=== PATIENT | female | born 1975 | race American Indian/Alaskan Native ===

== ENCOUNTER 2016-06-21 00:41 | Emergency (ER) | payer BC ==
[2016-06-21] MEDS ORDERED: TYLENOL ONE (03:15)
[2016-06-21] MEDS ORDERED: TYLENOL PO ONE (03:19)
--- NOTE | 2016-06-21 04:37 | Emergency Department Report ---
Addendum entered and electronically signed by GIANCARLO NGO PA 06/21/16 06:22 : Lab work: Patient H&H is 8.8 and 2 and 29.7 she has from chronic disease. White count was within normal limits. Patient said that she's been followed by her primary care physician for iron deficiency anemia. Original Note: HPI - General Chief Complaint: Upper Respiratory Infection Time Seen by Provider: 06/21/16 04:21 - HPI HPI: Patient here reports that she's been having fever, cough and chills sore throat and body ache that's been getting worst over the last day. She says she started off with a stuffy nose a week ago and she thinks it turned into pneumonia. Patient says she's been taking [id number]-[id number] medication it does not feel any better. Denies any chest pain or shortness of breath. She says she is coughing up some mucus it's yellowish. Her temperature is 102.7 and she was given Tylenol in triage. She reports pain 5 out of 10 and generalized into her throat. Denies any drooling or difficulty swallowing. 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 ED Past Medical Hx - Past Medical History Previous Medical History?: Yes Hx Diabetes: Yes Additional medical history: Anemia - Surgical History Past Surgical History?: No - Family History Family history: diabetes, hypertension - Social History Smoking Status: Never Smoker Substance Use Type: None - Medications Home Medications: Home Medications Medication Instructions Recorded Confirmed Last Taken Type ALBUTEROL Inhaler [ProAir HFA 2 puff IH QID PRN #1 inhalation 06/21/16 Unknown Rx Inhaler] Amoxicillin/K Clav Tab [Augmentin 1 tab PO Q12HR #20 tab 06/21/16 Unknown Rx 875 mg] Ibuprofen [Motrin] 600 mg PO Q8H PRN #15 tablet 06/21/16 Unknown Rx guaiFENesin/CODEINE [Robitussin AC] 10 ml PO QHS PRN #70 ml 06/21/16 Unknown Rx predniSONE [Deltasone] 50 mg PO QDAY #5 tab 06/21/16 Unknown Rx ED Review of Systems ROS: Stated complaint: FEVER/COUGH Other details as noted in HPI Comment: All other systems reviewed and negative Constitutional: chills, fever Eyes: denies: eye discharge ENT: throat pain, congestion. denies: ear pain Respiratory: cough. denies: orthopnea, shortness of breath, SOB with exertion, SOB at rest, stridor, wheezing Cardiovascular: denies: chest pain, palpitations, edema, syncope Gastrointestinal: denies: abdominal pain, nausea, vomiting, diarrhea Genitourinary: denies: urgency, dysuria, frequency, hematuria, discharge Musculoskeletal: arthralgia. denies: back pain Skin: denies: rash Neurological: denies: headache, weakness, numbness, paresthesias, confusion, abnormal gait, vertigo Physical Exam - Physical Exam Vital Signs: Vital Signs 06/21/16 06/21/16 06/21/16 03:12 03:20 04:34 Temperature 102.7 F H 101.9 F H Pulse Rate 110 H Respiratory 20 Rate Blood Pressure 149/87 O2 Sat by Pulse 100 Oximetry Vital Signs 06/21/16 06/21/16 06/21/16 03:12 03:20 04:34 Temperature 102.7 F H 101.9 F H Pulse Rate 110 H Respiratory 20 Rate Blood Pressure 149/87 Blood Pressure [Left] O2 Sat by Pulse 100 Oximetry 06/21/16 05:52 Temperature 99.4 F Pulse Rate 96 H Respiratory 18 Rate Blood Pressure Blood Pressure 136/84 [Left] O2 Sat by Pulse 98 Oximetry General: THis is a 40-year-old female well-nourished well-developed in no acute distress. Physical Exam: Head: Normocephalic atraumatic Mouth: Moist, no pharyngeal exudate or erythema. Uvula is midline and oral airway is patent. No gingival enlargement or dental tenderness. No facial swelling. No peritonsillar abscesses. Neck: Supple, no C-spine tenderness, no tracheal deviation. Nontender to palpate. no adenopathy Ears: Bilateral TMs congested without erythema .bilateral EAC without any redness swelling or drainage Eyes: Bilateral pupils equal and reactive to light, bilateral EOM intact. Bilateral sclera and conjunctiva without injection. Normal accommodation Nose: Mucosa moist, positive congestion no erythema. Positive clear drainage. maxillary and frontal sinus non-tender to palpate. Lungs: Scattered wheezing to bilateral lung ugarte .Normal work of breathing. Abdomen: Soft, nontender to palpate in all quadrants. No guarding or rebound tenderness. Normal bowel sounds. No CVA tenderness extremity; No CCE. +2 pulses. No neurovascular compromise Cardiovascular: S1-S2, tachycardic at 110 .regular rhythm. No murmurs. Skin: clean Dry and intact no rash no lesions Psych: Normal mood and behavior ED Course Vital Signs 06/21/16 06/21/16 06/21/16 03:12 03:20 04:34 Temperature 102.7 F H 101.9 F H Pulse Rate 110 H Respiratory 20 Rate Blood Pressure 149/87 O2 Sat by Pulse 100 Oximetry Vital Signs 06/21/16 06/21/16 06/21/16 03:12 03:20 04:34 Temperature 102.7 F H 101.9 F H Pulse Rate 110 H Respiratory 20 Rate Blood Pressure 149/87 Blood Pressure [Left] O2 Sat by Pulse 100 Oximetry 06/21/16 05:52 Temperature 99.4 F Pulse Rate 96 H Respiratory 18 Rate Blood Pressure Blood Pressure 136/84 [Left] O2 Sat by Pulse 98 Oximetry - Reevaluation(s) Reevaluation #1: 06/21/16 05:55 Patient given Motrin 800 mg by mouth for sore throat and body ache. Also for fever. Her temperature is now below 100. Reevaluation #2: 06/21/16 06:07 Given Rocephin 1 g IM and emergency room for bronchitis. He was also given DuoNeb times one nebulizer and Deltasone 60 mg by mouth. Upon reevaluation, chest sounds clear. ED Medical Decision Making - Radiology Data Radiology results: report reviewed Chest x-ray revealed no acute cardiopulmonary findings. - Medical Decision Making ED course: An Tylenol 650 mg by mouth and triage area for increase temp. Temp remained elevated therefore he was given Motrin 800 mg by mouth which brought temperature below 100, Other vital signs are now stable. Patient received Rocephin 1 g IM in emergency room, Deltasone 60 mg by mouth and DuoNeb 1 nebulizer treatment for management of acute bronchitis. Sore throat and body ache relieved after Motrin. I discussed the patient that she has acute bronchitis and will need to follow-up with her primary care physician within 2- 3 days. Patient discharged home with prescription for Augmentin, prednisone, Guaifenessin with codeine,motrin and albuterol inhaler. He voiced understanding of need to follow-up and to take Motrin every 8 hours when necessary to manage fever and body aches. Critical care attestation.: If time is entered above; I have spent that time in minutes in the direct care of this critically ill patient, excluding procedure time. ED Disposition Clinical Impression: Fever in adult, Cough Acute bronchitis Qualifiers: Bronchitis organism: unspecified organism Qualified Code(s): J20.9 - Acute bronchitis, unspecified Pharyngitis Qualifiers: Pharyngitis/tonsillitis etiology: unspecified etiology Qualified Code(s): J02.9 - Acute pharyngitis, unspecified Disposition: DISCHARGED TO HOME OR SELFCARE Is pt being admited?: No Does the pt Need Aspirin: No Condition: Stable Instructions: Acute Bronchitis (ED), Fever in Adults (ED), Acute Cough (ED) Additional Instructions: increase her fluid intake You can take vitamin C or multivitamin to posterior immune system Take medication as prescribed. Please rest for 72 hours Follow-up with a primary care physician in 2-3 days. Cough medicine can cause drowsiness so please do not drive or operate any heavy machinery while taking cough medicine. Prescriptions: guaiFENesin/CODEINE [Robitussin AC] 10 ml PO QHS PRN #70 ml PRN Reason: Cough Amoxicillin/K Clav Tab [Augmentin 875 mg] 1 tab PO Q12HR #20 tab predniSONE [Deltasone] 50 mg PO QDAY #5 tab Ibuprofen [Motrin] 600 mg PO Q8H PRN #15 tablet PRN Reason: Pain ALBUTEROL Inhaler [ProAir HFA Inhaler] 2 puff IH QID PRN #1 inhalation PRN Reason: Wheezing and cough Referrals: Cristian KLEIN [Other] - 2-3 Days Forms: Accompanied Note, Work/School Release Form(ED)
[2016-06-21] MEDS ORDERED: MOTRIN PO ONE (04:38)
[2016-06-21 05:11] LABS: Basophils % (Auto) 0.7 % (0.0-1.8); Eosinophils % (Auto) 1.8 % (0.0-4.3); Mean Corpuscular HGB Conc 30 % (30-34); Platelet Count 405 K/mm3 (140-440); Red Blood Count 4.68 M/mm3 (3.65-5.03); White Blood Count 9.4 K/mm3 (4.5-11.0)
[2016-06-21 05:16] LABS: Hematocrit 29.7 % (30.3-42.9); Hemoglobin 8.8 gm/dl (10.1-14.3); Mean Corpuscular Hemoglobin 19 pg (28-32); Mean Corpuscular Volume 63 fl (79-97); Red Cell Distribution Width 22.7 % (13.2-15.2)
--- NOTE | 2016-06-21 05:33 | XRay Report ---
FINAL REPORT EXAM: XR CHEST ROUTINE 2V HISTORY: fever,cough TECHNIQUE: 2 views of the chest PRIORS: None FINDINGS: Normal heart size. No pleural effusion or pneumothorax. Lungs are clear. No vascular congestion. IMPRESSION: 1. No acute finding.
[2016-06-21 05:53] VITALS: BP 136/84
[2016-06-21] MEDS ORDERED: XYLOCAINE 1% MPF 5 mL INFILTRATI ONE (05:55)
[2016-06-21] MEDS ORDERED: ROCEPHIN IM STA (05:55)
[2016-06-21] MEDS ORDERED: DELTASONE PO ONE (05:56)
[2016-06-21] MEDS ORDERED: DUONEB 0.5 MG-3 MG/3 ML SOLN IH ONE (05:56)
== END 2016-06-21 06:39 | disposition home or self-care (01) ==
LOC: ED 00:41
DX: J20.9 Acute bronchitis, unspecified (principal); J02.9 Acute pharyngitis, unspecified; R50.9 Fever, unspecified; E11.9 Type 2 diabetes mellitus without complications; D64.9 Anemia, unspecified
CPT/HCPCS: 36415; 71020; 85025; 87116; 87400; 87430; 94640; 96372; 99284; J0696; J7512

== ENCOUNTER 2018-08-22 17:11 | Emergency (ER) | payer BC ==
[2018-08-22] MEDS ORDERED: ASPIRIN PO ONE (17:29)
[2018-08-22 17:30] VITALS: BP 153/81
--- NOTE | 2018-08-22 17:32 | Emergency Department Report ---
Chief Complaint: Chest Pain Stated Complaint: HBP/CHEST PAIN Time Seen by Provider: 08/22/18 17:28 - HPI History of Present Illness: This is a 43 y.o. female that presents to the ED with chest pain radiating to back since this morning. Patient also concerned of elevated blood pressure. PMH DM2 and anemia - ROS Review of Systems: left sided chest pain radiating to back - Exam Vital Signs: Vital Signs 08/22/18 17:28 Temperature 98.6 F Pulse Rate 94 H Respiratory 20 Rate Blood Pressure 153/81 O2 Sat by Pulse 99 Oximetry MSE screening note: Focused history and physical exam performed. Due to findings the following was ordered: labs and cxr ED Disposition for MSE Condition: Stable
--- NOTE | 2018-08-22 19:13 | XRay Report ---
PROCEDURE: XR CHEST 1V AP TECHNIQUE: Single AP view of the chest HISTORY: Chest Pain COMPARISONS: None FINDINGS: Normal cardiomediastinal silhouette. No infiltrate, effusion, or pneumothorax. No acute osseous abnor mality is identified IMPRESSION: No radiographic evidence of acute cardiopulmonary disease process. This document is electronically signed by Natalya Thomas MD., August 22 2018 07:11:12 PM ET
[2018-08-22 19:35] LABS: Basophils # (Auto) 0.1 K/mm3 (0.0-0.1); Basophils % (Auto) 0.8 % (0.0-1.8); Eosinophils # (Auto) 0.2 K/mm3 (0.0-0.4); Eosinophils % (Auto) 2.4 % (0.0-4.3); Lymphocytes # (Auto) 1.3 K/mm3 (1.2-5.4); Lymphocytes % (Auto) 17.9 % (13.4-35.0); Mean Corpuscular HGB Conc 30 % (30-34); Monocytes # (Auto) 0.5 K/mm3 (0.0-0.8); Monocytes % (Auto) 6.5 % (0.0-7.3); Platelet Count 500 K/mm3 (140-440); Red Blood Count 4.85 M/mm3 (3.65-5.03)
[2018-08-22 19:40] LABS: Hematocrit 33.1 % (30.3-42.9); Mean Corpuscular Volume 68 fl (79-97); Red Cell Distribution Width 21.8 % (13.2-15.2)
[2018-08-22 19:41] LABS: BUN/Creatinine Ratio 20; Blood Urea Nitrogen 10 mg/dL (7-17); Calcium 8.9 mg/dL (8.4-10.2); Hemolysis Index 2
--- NOTE | 2018-08-22 19:48 | Emergency Department Report ---
ED Chest Pain HPI - General Chief Complaint: Chest Pain Stated Complaint: HBP/CHEST PAIN Time Seen by Provider: 08/22/18 17:28 Source: patient Mode of arrival: Ambulatory Limitations: No Limitations - History of Present Illness Initial Comments: pt is s 43 y/o aaf with htn, dm who prsents for intermittent cp for past yr pain described as 3/10 aching left lateral chest and posterior shoulder there is no n/v no fever or chills no cough n/v symptoms are exacerbated by movement position deep breathing MD Complaint: chest pain Onset/Timin -: month(s) Onset: during rest Pain Location: substernal, left chest Pain Radiation: back Severity: moderate Severity scale (0 -10): 5 Quality: aching Consistency: intermittent Improves With: rest Worsens With: exertion, inspiration, movement re: denies: nausea, vomting, diaphoresis, dyspnea, sense of impending doom Treatments Prior to Arrival: none - Related Data On Oral Contraceptives: No Previous Rx's Medication Instructions Recorded Last Taken Type ALBUTEROL Inhaler (OR & NICU) 2 puff IH QID PRN #1 inhalation 06/21/16 Unknown Rx [ProAir HFA Inhaler] Amoxicillin/K Clav Tab [Augmentin 1 tab PO Q12HR #20 tab 06/21/16 Unknown Rx 875 mg] Ibuprofen [Motrin] 600 mg PO Q8H PRN #15 tablet 06/21/16 Unknown Rx guaiFENesin/CODEINE [Robitussin AC] 10 ml PO QHS PRN #70 ml 06/21/16 Unknown Rx predniSONE [Deltasone] 50 mg PO QDAY #5 tab 06/21/16 Unknown Rx Ibuprofen 800 mg PO TID PRN #30 tablet 08/22/18 Unknown Rx Allergies Allergy/AdvReac Type Severity Reaction Status Date / Time No Known Allergies Allergy Unverified 06/21/16 03:12 Heart Score - HEART Score History: Slightly suspicious EKG: Normal Age: < 45 Risk factors: 1-2 risk factors Troponin: < normal limit HEART Score: 1 ED Review of Systems ROS: Stated complaint: HBP/CHEST PAIN Other details as noted in HPI Constitutional: denies: chills, fever Eyes: denies: eye pain, eye discharge, vision change ENT: denies: ear pain, throat pain Respiratory: denies: cough, shortness of breath, wheezing Cardiovascular: chest pain. denies: palpitations, dyspnea on exertion, syncope, paroxysmal nocturnal dyspnea Endocrine: no symptoms reported Gastrointestinal: denies: abdominal pain, nausea, diarrhea Genitourinary: denies: urgency, dysuria, discharge Musculoskeletal: denies: back pain, joint swelling, arthralgia Skin: denies: rash, lesions Neurological: denies: headache, weakness, paresthesias Psychiatric: denies: anxiety, depression Hematological/Lymphatic: denies: easy bleeding, easy bruising ED Past Medical Hx - Past Medical History Previous Medical History?: Yes Hx Diabetes: Yes Additional medical history: Anemia - Surgical History Past Surgical History?: Yes Additional Surgical History: ablasion - Social History Smoking Status: Former Smoker Substance Use Type: None - Medications Home Medications: Home Medications Medication Instructions Recorded Confirmed Last Taken Type ALBUTEROL Inhaler (OR & NICU) 2 puff IH QID PRN #1 inhalation 06/21/16 Unknown Rx [ProAir HFA Inhaler] Amoxicillin/K Clav Tab [Augmentin 1 tab PO Q12HR #20 tab 06/21/16 Unknown Rx 875 mg] Ibuprofen [Motrin] 600 mg PO Q8H PRN #15 tablet 06/21/16 Unknown Rx guaiFENesin/CODEINE [Robitussin AC] 10 ml PO QHS PRN #70 ml 06/21/16 Unknown Rx predniSONE [Deltasone] 50 mg PO QDAY #5 tab 06/21/16 Unknown Rx Ibuprofen 800 mg PO TID PRN #30 tablet 08/22/18 Unknown Rx ED Physical Exam - General Limitations: No Limitations General appearance: alert, in no apparent distress - Head Head exam: Present: atraumatic, normocephalic - Eye Eye exam: Present: normal appearance, PERRL, EOMI Pupils: Present: normal accommodation - ENT ENT exam: Present: mucous membranes moist - Neck Neck exam: Present: normal inspection, full ROM. Absent: tenderness, meningismus, lymphadenopathy, thyromegaly - Respiratory Respiratory exam: Present: normal lung sounds bilaterally, chest wall tenderness. Absent: respiratory distress, wheezes, stridor, prolonged expiratory - Cardiovascular Cardiovascular Exam: Present: regular rate, normal rhythm, normal heart sounds. Absent: systolic murmur, diastolic murmur, rubs, gallop - GI/Abdominal GI/Abdominal exam: Present: soft, normal bowel sounds. Absent: tenderness, guarding, rebound, bruit, hernia - Rectal Rectal exam: Present: deferred - Extremities Exam Extremities exam: Present: normal inspection - Back Exam Back exam: Present: normal inspection, full ROM. Absent: tenderness, CVA tenderness (R), CVA tenderness (L), muscle spasm, paraspinal tenderness, rash noted - Neurological Exam Neurological exam: Present: alert, oriented X3, CN II-XII intact, normal gait, reflexes normal - Psychiatric Psychiatric exam: Present: normal affect, normal mood - Skin Skin exam: Present: warm, dry, intact, normal color. Absent: rash ED Course Vital Signs 08/22/18 08/22/18 17:28 19:15 Temperature 98.6 F Pulse Rate 94 H Respiratory 20 18 Rate Blood Pressure 153/81 O2 Sat by Pulse 99 Oximetry MAYKEL score - Maykel Score Age > 65: (0) No Aspirin use within the Past 7 Days: (0) No 3 or more CAD Risk Factors: (0) No 2 or more Angina events in past 24 hrs: (0) No Known CAD with more than 50% Stenosis: (0) No Elevated Cardiac Markers: (0) No ST Deviation Greater than 0.5mm: (0) No MAYKEL Score: 0 ED Medical Decision Making - Lab Data Result diagrams: 08/22/18 18:58 08/22/18 18:58 Labs 08/22/18 08/22/18 08/22/18 18:58 18:58 22:20 WBC 7.0 RBC 4.85 Hgb 10.0 L Hct 33.1 MCV 68 L MCH 21 L MCHC 30 RDW 21.8 H Plt Count 500 H Lymph % (Auto) 17.9 [place] % (Auto) 6.5 Eos % (Auto) 2.4 Baso % (Auto) 0.8 Lymph # 1.3 [place] # 0.5 Eos # 0.2 Baso # 0.1 Seg Neutrophils % 72.4 H Seg Neutrophils # 5.1 Sodium 139 Potassium 3.8 Chloride 100.5 Carbon Dioxide 28 Anion Gap 14 BUN 10 Creatinine 0.5 L Estimated GFR > 60 BUN/Creatinine Ratio 20 Glucose 110 H Calcium 8.9 Troponin T < 0.010 < 0.010 - EKG Data EKG shows normal: sinus rhythm, axis, intervals, QRS complexes, ST-T waves Rate: normal - EKG Data When compared to previous EKG there are: previous EKG unavailable Interpretation: normal EKG (ekg interp by ed attending NSR no ST elevation no ecotpy ) - Radiology Data Radiology results: report reviewed, image reviewed Ordering Physician: DARNELL GORE Date of Service: 08/22/18 Procedure(s): XR chest 1V ap Accession Number(s): [id number] cc: DARNELL GORE Fluoro Time In Minutes: PROCEDURE: XR CHEST 1V AP TECHNIQUE: Single AP view of the chest HISTORY: Chest Pain COMPARISONS: None FINDINGS: Normal cardiomediastinal silhouette. No infiltrate, effusion, or pneumothorax. No acute osseous abnormality is identified IMPRESSION: No radiographic evidence of acute cardiopulmonary disease process. This document is electronically signed by Natalya Thomas MD., August 22 2018 07:11:12 PM ET Transcribed By: [facility] Dictated By: NATALYA THOMAS M.D. Electronically Authenticated By: NATALYA THOMAS M.D. Signed Date/Time: 08/22/181912 DD/ 14 TD/TT: 08/22/181814 - Medical Decision Making cxr: normal no infiltrates no opacities, EKG: NSR no st elevation, trop neg at < 0.01 x 2, heart score is 0 ,MAYKEL score is 0, plan ibuprofen prn pain follow up with pcp in 2-3 days follow up with cardiology , return to ed if symptoms worsen. tp verbalized agreement and understanding of discharge plan. pt for dc to home in stable condition at this time. Critical care attestation.: If time is entered above; I have spent that time in minutes in the direct care of this critically ill patient, excluding procedure time. ED Disposition Clinical Impression: Chest wall pain Chest pain Qualifiers: Chest pain type: unspecified Qualified Code(s): R07.9 - Chest pain, unspecified Disposition: DC-01 TO HOME OR SELFCARE Is pt being admited?: No Does the pt Need Aspirin: No Condition: Stable Instructions: Chest Pain (ED) Prescriptions: Ibuprofen 800 mg PO TID PRN #30 tablet PRN Reason: pain Referrals: PAULINE GUADARRAMA MD [Referring] - 3-5 Days JORGE A GRIFFITHS MD [Staff Physician] - 3-5 Days Forms: Work/School Release Form(ED) Time of Disposition: 23:15
[2018-08-22] MEDS ORDERED: ASPIRIN ONE (20:12)
[2018-08-22] MEDS ORDERED: TORADOL IM ONE (21:41)
== END 2018-08-22 23:25 | disposition home or self-care (01) ==
LOC: ED 17:11
DX: R07.89 Other chest pain (principal); E11.9 Type 2 diabetes mellitus without complications; Z87.891 Personal history of nicotine dependence
CPT/HCPCS: 36415; 71045; 80048; 84484; 85025; 93005; 93010; 96372; 99284; J1885